=== PATIENT | male | born 1965 | race Caucasian/White ===

== ENCOUNTER 2023-02-21 18:38 | Emergency (ER) | payer OTHER, SELFPAY ==
--- NOTE | ~2023-02-21 | XR_ITS ---
EXAMINATION: XR chest 2V DATE: 02/21/2023 19:00 INDICATION: Chest pain. TECHNIQUE: Frontal and lateral views of the chest were obtained. COMPARISON: Chest 2 views 09/13/2019 FINDINGS: There is no pneumonia, pleural effusion, or pneumothorax. The heart size is normal. IMPRESSION: 1. No acute cardiopulmonary disease. Reviewed, dictated and finalized at location E.
--- NOTE | 2023-02-21 18:39 | ECG_ITS ---
Measurements Intervals [place] Rate: 48 P: 51 FL: 152 QRS: 22 QRSD: 86 T: 64 QT: 460 QTc: 411 Interpretive Statements SINUS BRADYCARDIA BASELINE ARTIFACT- I, III, AVL ABNORMAL ECG COMPARED TO ECG 09/13/2019 01:42:27 HEART RATE HAS DECREASED Electronically Signed On 02-21-2023 21:11:54 CDT by Alonzo Barber D.O.
[2023-02-21 18:40] VITALS: BP 228/93; PULSE 50; RESP 18; TEMP 37.7; O2SAT 97
[2023-02-21 19:03] LABS: Basophils Percent Auto 0.3 % (0.2-1.2); Eosinophils Absolute Auto 0.2 K/mm3 (0-0.3); Eosinophils Percent Auto 1.2 % (0-4.4); Hematocrit 46.4 % (42.0-52.0); Hemoglobin 15.6 g/dL (14.0-18.0); Immature Granulocyte Absolute 0.04 K/mm3 (0.00-0.031); Immature Granulocyte Percent A 0.3 % (0-0.5); Lymphocytes Absolute Auto 2.62 K/mm3 (0.9-3.2); Lymphocytes Percent Auto 21.4 % (18.3-44.2); Mean Corpuscular HGB Conc 33.6 g/dl (32-36); Mean Corpuscular Volume 86.2 fl (80-100); Monocytes Absolute Auto 0.9 K/mm3 (0.1-0.6); Monocytes Percent Auto 7.4 % (2.6-8.5); Neutrophils Absolute Auto 8.5 K/mm3 (1.3-6.7); Neutrophils Percent Auto 69.4 % (45.5-73.1); Platelet Count Result 302 k/mm3 (150-375); Red Blood Count 5.38 M/mm3 (4.6-6.20); Red Cell Distribution Width 13.3 % (11.5-14.5); White Blood Count 12.2 K/mm3 (4.5-10.0)
[2023-02-21 19:12] LABS: Alanine Aminotransferase 37 U/L (6-50); Albumin Level 4.6 g/dL (3.5-5.1); Alkaline Phosphatase 60 U/L (38-126); Anion Gap 7 mmol/L (8-16); Aspartate Amino Transferase 30 U/L (17-59); Bilirubin,Total 0.6 mg/dL (0.2-1.3); Blood Urea Nitrogen 21 mg/dL (9-20); Calcium 9.1 mg/dL (8.4-10.2); Carbon Dioxide 31 mmol/L (22-30); Chloride 101 mmol/L (98-107); Estimated CRCL calculation 56 ml/min; Estimated Glomerular Filt Rate > 60; Glucose 100 mg/dL (65-110); Lipase 139 U/L (23-300); Sodium 139 mmol/L (137-145)
[2023-02-21 19:21] LABS: Prothrombin Time 13.9 Seconds (11.1-14.7)
[2023-02-21 19:22] LABS: Partial Thromboplastin Time 30.9 SECONDS (22.3-36.8); Troponin I < 0.012 ng/mL (0.000-0.034)
[2023-02-21 19:35] VITALS: O2SAT 99
--- NOTE | 2023-02-21 19:37 | PC.NURSE ---
Pt reports right sided, non-radiating chest pain. Pt states I've got a rib out of place . Pain is worse with movement, position changes, and deep breathing. He took excedrin at 1100 and 1600 without improvement. Skin warm and dry. No increased work of breathing noted. Pt reports nausea when pain is most severe.
[2023-02-21 19:39] VITALS: BP 198/97; PULSE 45; RESP 16; O2SAT 100
--- NOTE | 2023-02-21 19:55 | ED.GENADULT ---
HPI - General Adult General Chief complaint: Chest Pain Stated complaint: chest pain Time Seen by Provider: 02/21/23 19:37 History of Present Illness HPI narrative: this is a 57-year-old male history of hypertension presenting ED with chief complaint of chest pain. Patient has been having chest anterior right chest wall at the rib border since this morning. It is a sharp pain that is nonradiating, 3/10 in intensity and comes and goes. Feels similar when he has muscle spasms in the past. Is worse with deep breaths there are no exacerbating symptoms. The patient did have an episode where he became flushed cold and clammy although this was associated with significant pain and then resolved on its own. He denies fever chills productive cough nausea vomiting or abdominal pain. Patient did see his chiropractor earlier today who fixed a slipped rib. Related Data Home Medications Medication Instructions Recorded Confirmed lisinopril 20 tablet 09/13/19 mg-hydrochlorothiazide 12.5 mg tablet Allergies Allergy/AdvReac Type Severity Reaction Status Date / Time No Known Allergies Allergy Verified 02/21/23 18:40 [facility] Past Medical History Medical History HTN (hypertension) Pneumonia Surgical History Surgical History No history of previous surgery Family History Family History Other Family history of malignant neoplasm Social History Social History Smoking status: Never smoker Gender identity (if verbalized by the patient): Male Exam Narrative: APPEARANCE: No apparent distress. Head: atraumatic. EYES: EOMI, NOSE: Atraumatic NECK: Trachea midline RESPIRATORY: No increased rate of breathing, clear to auscultation CARDIOVASCULAR: RRR, no peripheral edema ABDOMINAL: Non-distended, soft nontender no guarding rebound MUSCULOSKELETAl: No obvious deformities, no tenderness to palpation over the anterior rib cage NEURO: Alert. Moving 4/4 extremities SKIN:: Warm, dry. Normal color PSYCHIATRIC: Normal affect Course Vital Signs Vital signs: Vital Signs Temperature 100 F H 02/21/23 18:40 Pulse Rate 50 L 02/21/23 18:40 Respiratory Rate 18 02/21/23 18:40 Blood Pressure 228/93 H 02/21/23 18:40 Pulse Oximetry 97 02/21/23 18:40 Temperature 100 F H 02/21/23 18:40 Pulse Rate 53 L 02/21/23 21:17 Respiratory Rate 18 02/21/23 21:17 Blood Pressure 165/95 H 02/21/23 21:17 Pulse Oximetry 97 02/21/23 21:17 Oxygen Delivery Room Air 02/21/23 19:35 Medical Decision Making MDM Narrative Medical decision making narrative: -Presentation: 57-year-old male presenting with anterior right-sided chest pain. -DDX includes but is not limited to: Pleurisy, PE, pneumonia, ACS, muscle spasm -Co-morbidities complicating care: chronic muscle spasms, hypertension -Social determinants of health: Patient works as a truck driving, he is accompanied by his life partner Dianna -External Chart Review: previous ER note for chest pain in September of 2019 -Hx from independent Sources: Dianna at bedside -Discussion of Management/ Consultants: None -Independent interpretation of studies: CBC showed a white count of 12.12. No evidence of infection. Metabolic panel is unremarkable. Troponins were undetectable x2. BMP was unremarkable. Chest x-ray showed no acute cardiopulmonary process. Independent EKG interpretation: Rhythm [sinus], Rate 48], [place] -[normal], [place] -[normal], QRS [narrow], QTC [normal], T waves -[negative for concerning inversions], ST Segments - [Negative for concerning elevations] Final interpretations: sinus bradycardia Dx tests considered but not ordered: -Procedures: -Interventions: Toradol, Tylenol, Robaxin -Shared decision making / Dispositi
[2023-02-21] MEDS: ACETAMINOPHEN 500 MG TABLET 1000 MG PO (20:08)
[2023-02-21] MEDS: methocarbamoL 750 MG TABLET 1500 MG PO (20:08)
[2023-02-21] MEDS: KETOROLAC 15 MG/ML VIAL (*BKC) IV PUSH (20:09)
[2023-02-21 20:18] LABS: D Dimer < 0.27 ug/mL (<0.48)
[2023-02-21 20:32] LABS: NT Pro B Type Natriuretic Pept 192 pg/mL (19.9-100)
[2023-02-21 21:17] VITALS: BP 165/95; PULSE 53; RESP 18; O2SAT 97
[2023-02-21 22:06] LABS: Troponin I < 0.012 ng/mL (0.000-0.034)
[2023-02-21 22:44] VITALS: BP 146/90; PULSE 54; RESP 16; O2SAT 99
== END 2023-02-21 22:44 | disposition home or self-care (01) ==
PROVIDERS: Emergency Medicine; Emergency Provider Emergency Medicine; PCP Physician Assistant
DX: R07.89 Other chest pain (principal); I10 Essential (primary) hypertension
CPT/HCPCS: 36415; 71046; 80053; 83690; 83880; 84484; 85025; 85380; 85610; 85730; 93005; 96374; 99284; A9270; J1885